=== PATIENT | female | born 1990 | race Caucasian/White ===

== ENCOUNTER 2017-02-04 09:08 | Emergency (ER) | payer SELFPAY ==
[2017-02-04 09:39] VITALS: BP 113/74
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
== END 2017-02-04 10:04 | disposition home or self-care (01) ==
LOC: UCCORT 09:08
DX: J32.9 Chronic sinusitis, unspecified (principal); H73.012 Bullous myringitis, left ear; H61.22 Impacted cerumen, left ear; Z96.612 Presence of left artificial shoulder joint
CPT/HCPCS: 99212; G0463